=== PATIENT | male | born 1960 | race Two or more races ===

== ENCOUNTER 2016-11-20 12:08 | Emergency (ER) | payer OTHER, MEDICAID ==
[~2016-11-20] VITALS: Ht 149.9 cm; Wt 78.0 kg
[~2016-11-20 12:08] MED LIST: CYA100I IM; FOLI1TAB51 PO; INSLANTI SC; INSLISPI SC; NOR10T PO; PHE100C PO; PHEN50CH4 OR; TAMS0.4C36 PO
[2016-11-20 12:47] LABS: Urine Bilirubin Negative (Negative); Urine Color Yellow (Yellow); Urine Glucose Normal (Normal); Urine Ketone Negative (Negative); Urine Mucus FEW (None Seen); Urine Nitrite Negative (Negative); Urine RBC 31 /hpf (0 - 3); Urine Urobilinogen Normal (Negative); Urine pH 6.5 (5.0-8.0)
[2016-11-20 12:49] LABS: Urine Blood 1+ /uL (Negative)
[2016-11-20 14:54] VITALS: BP 173/79
== END 2016-11-20 16:35 | disposition home or self-care (01) ==
LOC: ER 12:08
DX: Q05.9 Spina bifida, unspecified (principal); G89.29 Other chronic pain; M54.9 Dorsalgia, unspecified; N39.0 Urinary tract infection, site not specified; I12.9 Hypertensive chronic kidney disease with stage 1 through stage 4 chronic kidney disease, or unspecified chronic kidney disease; N18.9 Chronic kidney disease, unspecified; E11.9 Type 2 diabetes mellitus without complications; K21.9 Gastro-esophageal reflux disease without esophagitis; Z87.440 Personal history of urinary (tract) infections; Z90.89 Acquired absence of other organs; Z90.49 Acquired absence of other specified parts of digestive tract; Z87.891 Personal history of nicotine dependence; Z88.1 Allergy status to other antibiotic agents; Z88.6 Allergy status to analgesic agent; Z91.041 Radiographic dye allergy status; Z88.8 Allergy status to other drugs, medicaments and biological substances
CPT/HCPCS: 81001

== ENCOUNTER 2017-05-05 15:56 | Emergency (ER) | payer OTHER, MEDICAID ==
[~2017-05-05] VITALS: Ht 149.9 cm; Wt 75.7 kg
[~2017-05-05 15:56] MED LIST changes: +LISI-646 PO; +PANT1INJ3 PO; -PHEN50CH4 OR; +TETR1CAP PO
[2017-05-05 16:45] LABS: Basophils # (auto) 0 uL; Basophils % (auto) 0.6 % (0.0-2.0); Eosinophils # (auto) 0.1 uL; Eosinophils % (auto) 1.7 % (0.0-7.0); Hematocrit 39.6 % (41.0-53.0); Hemoglobin 13.6 g/dL (13.5-17.5); Lymphocytes # (auto) 0.7 uL; Lymphocytes % (auto) 11.5 % (10.0-50.0); Mean Corpuscular Hemoglobin 30.1 pg (28.0-32.0); Mean Corpuscular Hgb Conc. 34.2 g/dL (32.0-36.0); Mean Corpuscular Volume 87.8 fL (80.0-100.0); Mean Platelet Volume 7.9 fL (6.9-10.8); Monocytes # (auto) 0.6 uL; Monocytes % (auto) 9.4 % (0.0-12.0); Neutrophils % (auto) 76.8 % (37.0-80.0); Platelet Count (auto) 141 10^3/uL (140-450); Red Cell Distribution Width 15.8 % (11.8-14.3); White Blood Cell 6.5 10^3/uL (4.4-10.8)
[2017-05-05 16:58] LABS: Albumin 3.6 g/dL (3.4-5.0); BUN/Creatinine Ratio 21.7; Calcium 8.4 mg/dL (8.5-10.1); Potassium 3.5 mmol/L (3.5-5.1)
[2017-05-05 17:00] LABS: Bilirubin, Total 0.3 mg/dL (0.2-1.0); Total Protein 8.2 g/dL (6.4-8.2)
[2017-05-05] MEDS ORDERED: HYDROmorphone HCL 2 MG/ML VL IV ONE (21:30)
[2017-05-05] MEDS ORDERED: SODIUM CHLORIDE 0.9% 1,000 ML IV ONE (21:30)
[2017-05-05] MEDS ORDERED: ONDANSETRON HCL 4 MG/2 ML VIAL IV ONE (21:30)
[2017-05-05] MEDS ORDERED: diphenhdrAMINE HCL 50 MG/1 ML VL IV ONE (21:30)
[2017-05-05 23:14] LABS: Amylase 126 U/L (25-115)
[2017-05-06 00:21] VITALS: BP 108/60
== END 2017-05-06 01:05 | disposition home or self-care (01) ==
LOC: ER 15:58
DX: R10.11 Right upper quadrant pain (principal); G89.29 Other chronic pain; M54.9 Dorsalgia, unspecified; E11.22 Type 2 diabetes mellitus with diabetic chronic kidney disease; N18.9 Chronic kidney disease, unspecified; K21.9 Gastro-esophageal reflux disease without esophagitis; I12.9 Hypertensive chronic kidney disease with stage 1 through stage 4 chronic kidney disease, or unspecified chronic kidney disease; Z87.440 Personal history of urinary (tract) infections; Z88.8 Allergy status to other drugs, medicaments and biological substances; Z88.6 Allergy status to analgesic agent; Z79.4 Long term (current) use of insulin; Z79.899 Other long term (current) drug therapy; Z90.49 Acquired absence of other specified parts of digestive tract; Z87.891 Personal history of nicotine dependence; Z93.3 Colostomy status
CPT/HCPCS: 36415; 74176; 80053; 82150; 83690; 85025; 93005; 96361; 96374; 96375; 99285; J1170; J1200; J2405

== ENCOUNTER 2017-09-25 13:29 | Inpatient (IN) | payer OTHER, MEDICAID ==
[~2017-09-25] VITALS: Ht 152.4 cm; Wt 78.1 kg
[2017-09-25 15:42] LABS: Basophils # (auto) 0 uL; Basophils % (auto) 0.7 % (0.0-2.0); Eosinophils # (auto) 0.1 uL; Eosinophils % (auto) 2.5 % (0.0-7.0); Hematocrit 39.7 % (41.0-53.0); Hemoglobin 13.6 g/dL (13.5-17.5); Lymphocytes # (auto) 0.7 uL; Lymphocytes % (auto) 13.5 % (10.0-50.0); Mean Corpuscular Hemoglobin 30.6 pg (28.0-32.0); Mean Corpuscular Hgb Conc. 34.2 g/dL (32.0-36.0); Mean Corpuscular Volume 89.5 fL (80.0-100.0); Monocytes # (auto) 0.4 uL; Monocytes % (auto) 7.9 % (0.0-12.0); Neutrophils # (auto) 3.7 uL; Neutrophils % (auto) 75.4 % (37.0-80.0); Platelet Count (auto) 122 10^3/uL (140-450); Red Blood Cells 4.44 10^6/uL (4.5-5.90); Red Cell Distribution Width 15.8 % (11.8-14.3); White Blood Cell 4.9 10^3/uL (4.4-10.8)
[2017-09-25 15:46] LABS: INR 0.97 (0.9-1.15); Partial Thromboplastin Time 26.4 sec (22.64-33.71); Prothrombin Time 10.6 sec (9.37-12.3)
[2017-09-25 15:52] LABS: Alanine Aminotransferase 36 U/L (16-61); Albumin 3.7 g/dL (3.4-5.0); Amylase 137 U/L (25-115); Anion Gap 7 (5-15); Aspartate Aminotransferase 25 U/L (15-37); BUN/Creatinine Ratio 11.9; Blood Urea Nitrogen 17 mg/dL (7-18); Calcium 8.7 mg/dL (8.5-10.1); Carbon Dioxide 23 mmol/L (21-32); Chloride 110 mmol/L (98-107); GFR African American 66 mL/min; GFR Non-African American 54 mL/min; Glucose 251 mg/dL (74-106); Lipase 158 U/L (73-393); Potassium 4.2 mmol/L (3.5-5.1); Sodium 140 mmol/L (136-145)
[2017-09-25 15:57] LABS: Alkaline Phosphatase 68 U/L (45-117); Bilirubin, Total 0.3 mg/dL (0.2-1.0); Lactic Acid w/Reflex 3.7 mmol/L (0.4-2.0); Total Protein 8.2 g/dL (6.4-8.2)
[2017-09-25] MEDS ORDERED: SODIUM CHLORIDE 0.9% 1,000 ML IV ONE ×2 (16:58)
[2017-09-25] MEDS ORDERED: PIPERACILLIN-TAZOB 3.375GM 50 ML IV ONE (17:00)
[2017-09-25] MEDS ORDERED: VANCOMYCIN 1GM/250ML 250 ML IV ONE (17:00)
[2017-09-25] MEDS ORDERED: DEXTROSE (50%) 50ML SYRG IV PRN (18:15)
[2017-09-25] MEDS ORDERED: VANCOMYCIN PER PHARMACY 0 MG IV SCH (18:30)
[2017-09-25] MEDS ORDERED: traMADol HCL 50 MG TAB PO PRN (18:45)
[2017-09-25] MEDS ORDERED: DOCUSATE SOD 100 MG CAP PO PRN (18:45)
[2017-09-25] MEDS ORDERED: TEMAZEPAM 15 MG CAP PO PRN (18:45)
[2017-09-25] MEDS ORDERED: MULTIPLE VITAMIN TAB PO ONE (19:00)
[2017-09-25] MEDS ORDERED: LISINOPRIL 20 MG TAB PO ONE (19:00)
[2017-09-25] MEDS ORDERED: ZINC SULFATE 220 MG CAP PO ONE (19:00)
[2017-09-25 19:04] LABS: Urine Bacteria MANY /hpf (None Seen); Urine Blood TRACE /uL (Negative); Urine WBC 30 /hpf (0 - 3)
[2017-09-25 20:00] VITALS: BP 160/87
[2017-09-25] MEDS ORDERED: diphenhdrAMINE HCL 50 MG/1 ML VL ONE (20:37)
[2017-09-25] MEDS ORDERED: diphenhdrAMINE HCL 50 MG/1 ML VL IV ONE (20:45)
[2017-09-25 21:52] VITALS: BP 150/92
[2017-09-25] MEDS: INSULIN LANTUS (GLARGINE) 1 /0.01ml (100units/ml) SC SCH (22:15)
[2017-09-25] MEDS: ACCU-CHEK COMFORT CURVE STRIP VI SCH (22:15)
[2017-09-25] MEDS: InsuLIN REG 1unit/0.01ml Soln (100units/ml) SC SCH (22:16)
[2017-09-25] MEDS: SODIUM CHLOR 0.9% PF (SALINE LOCK) 10ML VIAL IV SCH (22:26)
[2017-09-25] MEDS: ASCORBIC ACID 500 MG TAB PO SCH (22:26)
[2017-09-25] MEDS: FAMOTIDINE 20 MG TAB PO SCH (22:26)
[2017-09-25] MEDS: carBAMazepine 200 MG TAB PO SCH (22:26)
[2017-09-26] MEDS: NALBUPHINE HCL 10 MG/1ml INJECTION IV PRN ×5 (00:34→22:34)
[2017-09-26] MEDS: diphenhdrAMINE HCL 50 MG/1 ML VL IV PRN ×3 (00:34→22:34)
[2017-09-26] MEDS: PIPERACILLIN-TAZOB 3.375GM 50 ML IV SCH ×4 (00:35→16:47)
[2017-09-26 05:14] VITALS: BP 134/71
[2017-09-26] MEDS: SODIUM CHLOR 0.9% PF (SALINE LOCK) 10ML VIAL IV SCH ×2 (06:01→12:23)
[2017-09-26 06:50] VITALS: BP 143/76
[2017-09-26] MEDS: InsuLIN REG 1unit/0.01ml Soln (100units/ml) SC SCH ×4 (07:03→22:00)
[2017-09-26] MEDS: INSULIN LANTUS (GLARGINE) 1 /0.01ml (100units/ml) SC SCH ×2 (07:04→22:00)
[2017-09-26] MEDS: ACCU-CHEK COMFORT CURVE STRIP VI SCH ×4 (07:04→22:00)
[2017-09-26 07:12] LABS: Albumin 2.8 g/dL (3.4-5.0); Calcium 7.6 mg/dL (8.5-10.1)
[2017-09-26 07:14] LABS: BUN/Creatinine Ratio 9.1
[2017-09-26 07:16] LABS: Bilirubin, Total 0.3 mg/dL (0.2-1.0); Total Protein 6.6 g/dL (6.4-8.2)
[2017-09-26 08:12] LABS: Basophils # (auto) 0 uL; Basophils % (auto) 0.9 % (0.0-2.0); Eosinophils # (auto) 0.2 uL; Eosinophils % (auto) 4.3 % (0.0-7.0); Hematocrit 39.3 % (41.0-53.0); Hemoglobin 13.4 g/dL (13.5-17.5); Lymphocytes # (auto) 0.7 uL; Lymphocytes % (auto) 14.2 % (10.0-50.0); Mean Corpuscular Hemoglobin 30.4 pg (28.0-32.0); Mean Corpuscular Volume 89.6 fL (80.0-100.0); Monocytes # (auto) 0.6 uL; Monocytes % (auto) 11.8 % (0.0-12.0); Neutrophils # (auto) 3.2 uL; Neutrophils % (auto) 68.8 % (37.0-80.0); Nucleated Red Blood Cells % 0.1 %; Platelet Count (auto) 115 10^3/uL (140-450); Red Blood Cells 4.39 10^6/uL (4.5-5.90); Red Cell Distribution Width 15.4 % (11.8-14.3); White Blood Cell 4.7 10^3/uL (4.4-10.8)
[2017-09-26] MEDS: ASCORBIC ACID 500 MG TAB PO SCH ×2 (09:53→22:35)
[2017-09-26] MEDS: ZINC SULFATE 220 MG CAP PO SCH (09:53)
[2017-09-26] MEDS: FAMOTIDINE 20 MG TAB PO SCH ×2 (09:53→22:34)
[2017-09-26] MEDS: MULTIPLE VITAMIN TAB PO SCH (09:53)
[2017-09-26] MEDS: carBAMazepine 200 MG TAB PO SCH ×2 (09:54→22:35)
[2017-09-26] MEDS: LISINOPRIL 20 MG TAB PO SCH (09:54)
[2017-09-26 11:51] VITALS: BP 166/51
[2017-09-26] MEDS: ONDANSETRON HCL 4 MG/2 ML VIAL IV PRN ×2 (12:39→16:46)
[2017-09-26 16:25] VITALS: BP 147/76
[2017-09-26] MEDS ORDERED: VANCOMYCIN 1GM/250ML 250 ML IV SCH (18:00)
[2017-09-26 21:48] VITALS: BP 124/70
[2017-09-27] MEDS: PIPERACILLIN-TAZOB 3.375GM 50 ML IV SCH ×3 (00:15→12:03)
[2017-09-27] MEDS: SODIUM CHLOR 0.9% PF (SALINE LOCK) 10ML VIAL IV SCH ×3 (00:16→13:02)
[2017-09-27] MEDS: diphenhdrAMINE HCL 50 MG/1 ML VL IV PRN (03:35)
[2017-09-27] MEDS: NALBUPHINE HCL 10 MG/1ml INJECTION IV PRN ×2 (03:35→10:22)
[2017-09-27 05:00] VITALS: BP 149/79
[2017-09-27] MEDS: ACCU-CHEK COMFORT CURVE STRIP VI SCH ×2 (06:28→11:30)
[2017-09-27] MEDS: InsuLIN REG 1unit/0.01ml Soln (100units/ml) SC SCH ×2 (06:33→11:30)
[2017-09-27] MEDS: INSULIN LANTUS (GLARGINE) 1 /0.01ml (100units/ml) SC SCH (06:33)
[2017-09-27 07:03] LABS: Basophils # (auto) 0 uL; Basophils % (auto) 0.5 % (0.0-2.0); Eosinophils # (auto) 0.3 uL; Eosinophils % (auto) 3.8 % (0.0-7.0); Hematocrit 36.2 % (41.0-53.0); Hemoglobin 12.4 g/dL (13.5-17.5); Lymphocytes # (auto) 0.7 uL; Lymphocytes % (auto) 10.5 % (10.0-50.0); Mean Corpuscular Hemoglobin 30.8 pg (28.0-32.0); Mean Corpuscular Hgb Conc. 34.4 g/dL (32.0-36.0); Mean Corpuscular Volume 89.7 fL (80.0-100.0); Monocytes # (auto) 0.7 uL; Monocytes % (auto) 9.6 % (0.0-12.0); Neutrophils # (auto) 5.2 uL; Neutrophils % (auto) 75.6 % (37.0-80.0); Nucleated Red Blood Cells % 0.1 %; Platelet Count (auto) 109 10^3/uL (140-450); Red Blood Cells 4.03 10^6/uL (4.5-5.90); Red Cell Distribution Width 15.8 % (11.8-14.3); White Blood Cell 6.9 10^3/uL (4.4-10.8)
[2017-09-27 07:11] LABS: Calcium 8.1 mg/dL (8.5-10.1); Magnesium 2.1 mg/dL (1.6-2.6); Potassium 4.3 mmol/L (3.5-5.1)
[2017-09-27 07:18] LABS: BUN/Creatinine Ratio 10.8
[2017-09-27] MEDS ORDERED: FUROSEMIDE 40 MG/4 ML VIAL ONE (09:26)
[2017-09-27] MEDS ORDERED: AMPI500C8 PO (09:51)
[2017-09-27] MEDS ORDERED: SACC250C PO (09:51)
[2017-09-27] MEDS: MULTIPLE VITAMIN TAB PO SCH (10:21)
[2017-09-27] MEDS: FAMOTIDINE 20 MG TAB PO SCH (10:21)
[2017-09-27] MEDS: ZINC SULFATE 220 MG CAP PO SCH (10:21)
[2017-09-27] MEDS: carBAMazepine 200 MG TAB PO SCH (10:22)
[2017-09-27] MEDS: ASCORBIC ACID 500 MG TAB PO SCH (10:22)
[2017-09-27] MEDS: ONDANSETRON HCL 4 MG/2 ML VIAL IV PRN (10:22)
[2017-09-27] MEDS: LISINOPRIL 20 MG TAB PO SCH (12:03)
== END 2017-09-27 13:19 | disposition home or self-care (01) | DRG 872 ==
LOC: ER 13:29 → OVERFLOW 13:30 → CENTRAL 21:52
PROVIDERS: ADMIT Internal Medicine; ATTEND Internal Medicine
DX: A41.9 Sepsis, unspecified organism (principal); D69.6 Thrombocytopenia, unspecified; E11.21 Type 2 diabetes mellitus with diabetic nephropathy; E44.1 Mild protein-calorie malnutrition; E11.22 Type 2 diabetes mellitus with diabetic chronic kidney disease; N13.30 Unspecified hydronephrosis; N18.3 Chronic kidney disease, stage 3 (moderate); B96.20 Unspecified Escherichia coli [E. coli] as the cause of diseases classified elsewhere; D64.9 Anemia, unspecified; G40.909 Epilepsy, unspecified, not intractable, without status epilepticus; F41.9 Anxiety disorder, unspecified; I12.9 Hypertensive chronic kidney disease with stage 1 through stage 4 chronic kidney disease, or unspecified chronic kidney disease; R29.6 Repeated falls; K21.9 Gastro-esophageal reflux disease without esophagitis; G47.00 Insomnia, unspecified; K59.00 Constipation, unspecified; F32.9 Major depressive disorder, single episode, unspecified; K57.30 Diverticulosis of large intestine without perforation or abscess without bleeding; Z68.33 Body mass index [BMI] 33.0-33.9, adult; Q05.9 Spina bifida, unspecified; Z79.4 Long term (current) use of insulin; Z82.49 Family history of ischemic heart disease and other diseases of the circulatory system; Z83.3 Family history of diabetes mellitus; Z87.442 Personal history of urinary calculi; Z93.3 Colostomy status; Z88.6 Allergy status to analgesic agent; Z88.5 Allergy status to narcotic agent; Z88.8 Allergy status to other drugs, medicaments and biological substances; Z79.899 Other long term (current) drug therapy; Z90.49 Acquired absence of other specified parts of digestive tract; Z87.891 Personal history of nicotine dependence; Z71.89 Other specified counseling
CPT/HCPCS: 36415; 71045; 74176; 78707; 80048; 80053; 81001; 82150; 82962; 83036; 83605; 83690; 83735; 84484; 85025; 85610; 85730; 87040; 87086; 87088; 87186; 93005; 96361; 96365; 96367; 96375; 97163; J1815; J2405; J2543

== ENCOUNTER 2017-11-04 18:55 | Emergency (ER) | payer OTHER, MEDICAID ==
[~2017-11-04] VITALS: Ht 152.4 cm; Wt 76.2 kg
[~2017-11-04 18:55] MED LIST changes: +AMPI500C8 PO; +SACC250C PO
[2017-11-04] MEDS ORDERED: ONDANSETRON HCL 4 MG/2 ML VIAL IV ONE (20:45)
[2017-11-04] MEDS ORDERED: diphenhdrAMINE HCL 50 MG/1 ML VL IV ONE (20:45)
[2017-11-04] MEDS ORDERED: NALBUPHINE HCL 10 MG/1ml INJECTION IV ONE (20:45)
[2017-11-04 21:04] LABS: Albumin 3.6 g/dL (3.4-5.0); BUN/Creatinine Ratio 22.7; Calcium 8.4 mg/dL (8.5-10.1); Potassium 4.6 mmol/L (3.5-5.1)
[2017-11-04 21:07] LABS: Bilirubin, Total 0.7 mg/dL (0.2-1.0); Total Protein 8.3 g/dL (6.4-8.2)
[2017-11-04 21:25] LABS: Urine Bacteria FEW /hpf (None Seen); Urine Blood 1+ /uL (Negative); Urine Specific Gravity 1.012 (1.001-1.035); Urine WBC 508 /hpf (0 - 3); Urine WBC Clumps PRESENT /hpf (None Seen)
[2017-11-04] MEDS ORDERED: NALBUPHINE HCL 10 MG/1ml INJECTION IM ONE (21:45)
[2017-11-04 23:07] VITALS: BP 110/63
[2017-11-04 23:13] LABS: Basophils # (auto) 0 uL; Basophils % (auto) 0.4 % (0.0-2.0); Eosinophils # (auto) 0.1 uL; Hematocrit 40.4 % (41.0-53.0); Hemoglobin 13.7 g/dL (13.5-17.5); Lymphocytes # (auto) 0.5 uL; Lymphocytes % (auto) 6.7 % (10.0-50.0); Mean Corpuscular Hemoglobin 30.2 pg (28.0-32.0); Mean Corpuscular Hgb Conc. 33.9 g/dL (32.0-36.0); Mean Corpuscular Volume 89.1 fL (80.0-100.0); Monocytes # (auto) 0.8 uL; Monocytes % (auto) 10.3 % (0.0-12.0); Neutrophils # (auto) 6.3 uL; Neutrophils % (auto) 81.6 % (37.0-80.0); Nucleated Red Blood Cells % 0.1 %; Red Blood Cells 4.53 10^6/uL (4.5-5.90); Red Cell Distribution Width 14.7 % (11.8-14.3); White Blood Cell 7.7 10^3/uL (4.4-10.8)
[2017-11-04 23:25] LABS: Platelet Count (auto) 124 10^3/uL (140-450)
== END 2017-11-04 23:49 | disposition home or self-care (01) ==
LOC: ER 19:01
DX: K85.90 Acute pancreatitis without necrosis or infection, unspecified (principal); N39.0 Urinary tract infection, site not specified; N17.9 Acute kidney failure, unspecified; I12.9 Hypertensive chronic kidney disease with stage 1 through stage 4 chronic kidney disease, or unspecified chronic kidney disease; Q05.9 Spina bifida, unspecified; N18.2 Chronic kidney disease, stage 2 (mild); E11.22 Type 2 diabetes mellitus with diabetic chronic kidney disease; K21.9 Gastro-esophageal reflux disease without esophagitis; Z79.4 Long term (current) use of insulin; Z87.442 Personal history of urinary calculi; Z90.49 Acquired absence of other specified parts of digestive tract; Z93.3 Colostomy status; Z76.5 Malingerer [conscious simulation]; Z87.891 Personal history of nicotine dependence; Z88.6 Allergy status to analgesic agent; Z88.8 Allergy status to other drugs, medicaments and biological substances
CPT/HCPCS: 36415; 74176; 80053; 81001; 83690; 85025; 96372; 96374; 96375; 99285; J1200; J2300; J2405

== ENCOUNTER 2018-05-02 18:33 | Inpatient (IN) | payer OTHER, MEDICAID ==
[~2018-05-02] VITALS: Ht 144.8 cm; Wt 78.0 kg
[~2018-05-02 18:33] MED LIST changes: -SACC250C PO; -TETR1CAP PO
[2018-05-02 22:02] LABS: Basophils # (auto) 0 uL; Basophils % (auto) 0.4 % (0.0-2.0); Eosinophils # (auto) 0.1 uL; Eosinophils % (auto) 2.2 % (0.0-7.0); Hematocrit 39.9 % (41.0-53.0); Hemoglobin 13.6 g/dL (13.5-17.5); Lymphocytes # (auto) 0.8 uL; Mean Corpuscular Hemoglobin 31.5 pg (28.0-32.0); Mean Corpuscular Hgb Conc. 34.2 g/dL (32.0-36.0); Mean Corpuscular Volume 92.1 fL (80.0-100.0); Monocytes # (auto) 0.6 uL; Monocytes % (auto) 10.5 % (0.0-12.0); Neutrophils # (auto) 4.4 uL; Neutrophils % (auto) 73.9 % (37.0-80.0); Nucleated Red Blood Cells % 0.1 %; Platelet Count (auto) 127 10^3/uL (140-450); Red Blood Cells 4.33 10^6/uL (4.5-5.90); Red Cell Distribution Width 15.6 % (11.8-14.3); White Blood Cell 5.9 10^3/uL (4.4-10.8)
[2018-05-02 22:08] LABS: Urine Bacteria NONE SEEN /hpf (None Seen); Urine Blood 3+ /uL (Negative); Urine Mucus FEW (None Seen); Urine Specific Gravity 1.011 (1.001-1.035); Urine WBC 173 /hpf (0 - 3)
[2018-05-02 22:21] LABS: Alanine Aminotransferase 27 U/L (16-61); Albumin 3.6 g/dL (3.4-5.0); Alkaline Phosphatase 67 U/L (45-117); Anion Gap 10 (5-15); Aspartate Aminotransferase 13 U/L (15-37); BUN/Creatinine Ratio 14.6; Bilirubin, Total 0.5 mg/dL (0.2-1.0); Blood Urea Nitrogen 24 mg/dL (7-18); Calcium 8.1 mg/dL (8.5-10.1); Carbon Dioxide 14 mmol/L (21-32); Chloride 114 mmol/L (98-107); GFR African American 56 mL/min; GFR Non-African American 46 mL/min; Glucose 295 mg/dL (74-106); Magnesium 2.4 mg/dL (1.6-2.6); Potassium 3.9 mmol/L (3.5-5.1); Sodium 138 mmol/L (136-145); Total Protein 7.7 g/dL (6.4-8.2)
[2018-05-03] MEDS ORDERED: diphenhdrAMINE HCL 50 MG/1 ML VL IV ONE (03:30)
[2018-05-03] MEDS ORDERED: cefTRIAXone 1GM/10ml IVPUSH 10 ML IV ONE (03:30)
[2018-05-03] MEDS ORDERED: SODIUM CHLORIDE 0.9% 1,000 ML IV ONE (03:30)
[2018-05-03] MEDS ORDERED: HYDROmorphone HCL 2 MG/ML VL IV ONE (03:30)
[2018-05-03] MEDS ORDERED: ONDANSETRON HCL 4 MG/2 ML VIAL ONE (05:12)
[2018-05-03] MEDS ORDERED: ONDANSETRON HCL 4 MG/2 ML VIAL IV ONE (05:30)
[2018-05-03] MEDS ORDERED: DEXTROSE (50%) 50ML SYRG IV PRN (06:15)
[2018-05-03] MEDS: SODIUM CHLORIDE 0.9% 1,000 ML IV SCH (06:15)
[2018-05-03] MEDS ORDERED: IBUPROFEN 600 MG TAB PO PRN (06:15)
[2018-05-03] MEDS ORDERED: VANCOMYCIN PER PHARMACY 0 MG IV SCH (06:30)
[2018-05-03] MEDS: ACCU-CHEK COMFORT CURVE STRIP VI SCH ×3 (07:12→16:57)
[2018-05-03 07:16] LABS: Basophils # (auto) 0 uL; Basophils % (auto) 0.4 % (0.0-2.0); Eosinophils # (auto) 0.1 uL; Eosinophils % (auto) 2.3 % (0.0-7.0); Hematocrit 35.9 % (41.0-53.0); Hemoglobin 12.8 g/dL (13.5-17.5); Lymphocytes # (auto) 0.7 uL; Mean Corpuscular Hemoglobin 32.6 pg (28.0-32.0); Mean Corpuscular Hgb Conc. 35.5 g/dL (32.0-36.0); Mean Corpuscular Volume 91.7 fL (80.0-100.0); Monocytes # (auto) 0.5 uL; Neutrophils # (auto) 4.4 uL; Neutrophils % (auto) 76.3 % (37.0-80.0); Platelet Count (auto) 96 10^3/uL (140-450); Red Blood Cells 3.92 10^6/uL (4.5-5.90); Red Cell Distribution Width 15.7 % (11.8-14.3); White Blood Cell 5.8 10^3/uL (4.4-10.8)
[2018-05-03 07:34] LABS: Albumin 3.1 g/dL (3.4-5.0); BUN/Creatinine Ratio 14.7; Calcium 7.1 mg/dL (8.5-10.1); Potassium 3.6 mmol/L (3.5-5.1)
[2018-05-03 07:37] LABS: Bilirubin, Total 0.4 mg/dL (0.2-1.0)
[2018-05-03] MEDS: InsuLIN REG 1unit/0.01ml Soln (100units/ml) SC SCH ×4 (07:52→22:00)
[2018-05-03] MEDS: INSULIN LANTUS (GLARGINE) 1 /0.01ml (100units/ml) SC SCH (07:53)
[2018-05-03] MEDS ORDERED: LIDOCAINE 1% HCL (LOCAL ANESTH.) INJ 20ML MDV ONE (07:58)
[2018-05-03] MEDS ORDERED: VANCOMYCIN 1GM/250ML 250 ML IV ONE (09:00)
[2018-05-03] MEDS: LISINOPRIL 20 MG TAB PO SCH (09:14)
[2018-05-03] MEDS ORDERED: HYDROmorphone HCL 2 MG/ML VL IV PRN (10:30)
[2018-05-03] MEDS: ONDANSETRON HCL 4 MG/2 ML VIAL IV PRN ×2 (10:43→16:32)
[2018-05-03] MEDS: diphenhdrAMINE HCL 25 MG CAP PO PRN ×2 (10:43→21:00)
[2018-05-03] MEDS: fentaNYL CITRATE 100 MCG/2 ML VL IV PRN ×2 (12:16→16:32)
[2018-05-03] MEDS: PIPERACILLIN-TAZOB 3.375GM 100 ML IV SCH ×2 (12:17→17:51)
[2018-05-03 18:56] VITALS: BP 122/68
[2018-05-03 20:00] VITALS: BP 115/60
[2018-05-03 22:00] VITALS: BP 112/67
[2018-05-03] MEDS ORDERED: INSULIN LANTUS (GLARGINE) 1 /0.01ml (100units/ml) SC SCH (22:00)
[2018-05-04] VITALS (7 sets, daily range): BP systolic 102–139; BP diastolic 44–70
[2018-05-04] MEDS: ACCU-CHEK COMFORT CURVE STRIP VI SCH ×5 (00:02→21:22)
[2018-05-04] MEDS: SODIUM CHLORIDE 0.9% 1,000 ML IV SCH ×2 (00:13→15:35)
[2018-05-04] MEDS: PIPERACILLIN-TAZOB 3.375GM 100 ML IV SCH ×4 (00:13→17:34)
[2018-05-04] MEDS ORDERED: MEPERIDINE HCL (25 MG/ML) 1ML VIAL IV ONE (02:30)
[2018-05-04] MEDS: diphenhdrAMINE HCL 25 MG CAP PO PRN (02:57)
[2018-05-04] MEDS ORDERED: INSLANTI SC (06:04)
[2018-05-04 06:49] LABS: BUN/Creatinine Ratio 14.6; Calcium 7.5 mg/dL (8.5-10.1); Potassium 4.1 mmol/L (3.5-5.1)
[2018-05-04] MEDS ORDERED: KETOROLAC TROMETH 30 MG/ML 1ML VIAL IV ONE (08:00)
[2018-05-04] MEDS: HYDROmorphone HCL 2 MG/ML VL IV PRN ×5 (08:35→21:14)
[2018-05-04] MEDS: ONDANSETRON HCL 4 MG/2 ML VIAL IV PRN ×2 (08:44→21:14)
[2018-05-04] MEDS: InsuLIN REG 1unit/0.01ml Soln (100units/ml) SC SCH ×4 (09:10→21:15)
[2018-05-04] MEDS: INSULIN LANTUS (GLARGINE) 1 /0.01ml (100units/ml) SC SCH (09:10)
[2018-05-04] MEDS: LISINOPRIL 20 MG TAB PO SCH (10:05)
[2018-05-04] MEDS: VANCOMYCIN 750 MG in D5W 5% 250 ML IV SCH (10:06)
[2018-05-04 10:27] LABS: Basophils # (auto) 0 uL; Basophils % (auto) 0.6 % (0.0-2.0); Eosinophils # (auto) 0.1 uL; Eosinophils % (auto) 2.8 % (0.0-7.0); Hematocrit 39.7 % (41.0-53.0); Hemoglobin 13.8 g/dL (13.5-17.5); Lymphocytes # (auto) 0.4 uL; Lymphocytes % (auto) 9.6 % (10.0-50.0); Mean Corpuscular Hemoglobin 32.2 pg (28.0-32.0); Mean Corpuscular Hgb Conc. 34.8 g/dL (32.0-36.0); Mean Corpuscular Volume 92.4 fL (80.0-100.0); Monocytes # (auto) 0.3 uL; Monocytes % (auto) 9.1 % (0.0-12.0); Neutrophils % (auto) 77.9 % (37.0-80.0); Nucleated Red Blood Cells % 0.1 %; Platelet Count (auto) 96 10^3/uL (140-450); Red Cell Distribution Width 15.4 % (11.8-14.3); White Blood Cell 3.8 10^3/uL (4.4-10.8)
[2018-05-05] VITALS (7 sets, daily range): BP systolic 108–132; BP diastolic 50–65
[2018-05-05] MEDS: PIPERACILLIN-TAZOB 3.375GM 100 ML IV SCH ×3 (00:16→13:32)
[2018-05-05] MEDS: HYDROmorphone HCL 2 MG/ML VL IV PRN ×8 (00:16→23:08)
[2018-05-05] MEDS: ONDANSETRON HCL 4 MG/2 ML VIAL IV PRN ×4 (03:17→23:09)
[2018-05-05] MEDS: ACCU-CHEK COMFORT CURVE STRIP VI SCH ×4 (06:04→21:37)
[2018-05-05] MEDS: InsuLIN REG 1unit/0.01ml Soln (100units/ml) SC SCH ×4 (06:39→21:38)
[2018-05-05] MEDS: INSULIN LANTUS (GLARGINE) 1 /0.01ml (100units/ml) SC SCH (06:40)
[2018-05-05] MEDS: SODIUM CHLORIDE 0.9% 1,000 ML IV SCH ×2 (06:40→16:35)
[2018-05-05] MEDS: LISINOPRIL 20 MG TAB PO SCH (09:49)
[2018-05-05] MEDS: VANCOMYCIN 750 MG in D5W 5% 250 ML IV SCH (09:52)
[2018-05-05] MEDS: diphenhdrAMINE HCL 25 MG CAP PO PRN (10:30)
[2018-05-05 13:38] LABS: Basophils # (auto) 0 uL; Basophils % (auto) 0.8 % (0.0-2.0); Eosinophils # (auto) 0.2 uL; Eosinophils % (auto) 4.1 % (0.0-7.0); Hematocrit 39.8 % (41.0-53.0); Hemoglobin 13.5 g/dL (13.5-17.5); Lymphocytes # (auto) 1.1 uL; Lymphocytes % (auto) 18.5 % (10.0-50.0); Mean Corpuscular Hemoglobin 31.1 pg (28.0-32.0); Mean Corpuscular Volume 91.4 fL (80.0-100.0); Monocytes # (auto) 0.6 uL; Neutrophils # (auto) 3.9 uL; Neutrophils % (auto) 66.6 % (37.0-80.0); Platelet Count (auto) 108 10^3/uL (140-450); Red Blood Cells 4.35 10^6/uL (4.5-5.90); Red Cell Distribution Width 15.4 % (11.8-14.3); White Blood Cell 5.9 10^3/uL (4.4-10.8)
[2018-05-05 13:52] LABS: BUN/Creatinine Ratio 13.6; Calcium 8.3 mg/dL (8.5-10.1); Potassium 3.8 mmol/L (3.5-5.1)
[2018-05-05] MEDS: AMOXICILLIN TRIHYDRATE 250 MG CAP PO SCH ×2 (15:04→21:34)
[2018-05-06] VITALS (8 sets, daily range): BP systolic 108–160; BP diastolic 53–71
[2018-05-06] MEDS: diphenhdrAMINE HCL 25 MG CAP PO PRN ×2 (01:17→21:33)
[2018-05-06] MEDS: SODIUM CHLORIDE 0.9% 1,000 ML IV SCH ×3 (01:22→21:45)
[2018-05-06] MEDS: HYDROmorphone HCL 2 MG/ML VL IV PRN ×6 (02:10→21:32)
[2018-05-06] MEDS: ONDANSETRON HCL 4 MG/2 ML VIAL IV PRN ×4 (05:08→21:32)
[2018-05-06 06:20] LABS: Basophils # (auto) 0 uL; Basophils % (auto) 0.7 % (0.0-2.0); Eosinophils # (auto) 0.2 uL; Eosinophils % (auto) 4.4 % (0.0-7.0); Hematocrit 32.9 % (41.0-53.0); Hemoglobin 11.1 g/dL (13.5-17.5); Lymphocytes # (auto) 0.6 uL; Lymphocytes % (auto) 17.8 % (10.0-50.0); Mean Corpuscular Hgb Conc. 33.6 g/dL (32.0-36.0); Mean Corpuscular Volume 95.1 fL (80.0-100.0); Monocytes # (auto) 0.4 uL; Monocytes % (auto) 11.8 % (0.0-12.0); Neutrophils # (auto) 2.3 uL; Neutrophils % (auto) 65.3 % (37.0-80.0); Nucleated Red Blood Cells % 0.2 %; Platelet Count (auto) 79 10^3/uL (140-450); Red Blood Cells 3.46 10^6/uL (4.5-5.90); White Blood Cell 3.5 10^3/uL (4.4-10.8)
[2018-05-06 06:31] LABS: BUN/Creatinine Ratio 13.4; Calcium 7.5 mg/dL (8.5-10.1); Potassium 4.3 mmol/L (3.5-5.1)
[2018-05-06] MEDS: INSULIN LANTUS (GLARGINE) 1 /0.01ml (100units/ml) SC SCH (06:47)
[2018-05-06] MEDS: ACCU-CHEK COMFORT CURVE STRIP VI SCH ×4 (06:47→21:33)
[2018-05-06] MEDS: AMOXICILLIN TRIHYDRATE 250 MG CAP PO SCH ×3 (06:47→21:32)
[2018-05-06] MEDS: InsuLIN REG 1unit/0.01ml Soln (100units/ml) SC SCH ×4 (06:48→21:33)
[2018-05-06] MEDS ORDERED: PANTOPRAZOLE 40 MG/10 ML VIAL IV ONE (14:00)
[2018-05-06 18:00] LABS: Hematocrit 35.9 % (41.0-53.0); Hemoglobin 12.4 g/dL (13.5-17.5)
[2018-05-06 18:11] LABS: INR 0.98 (0.9-1.15); Prothrombin Time 10.5 sec (9.27-12.13)
[2018-05-06] MEDS: PANTOPRAZOLE 40 MG TAB PO SCH (21:33)
[2018-05-06 23:55] LABS: Hematocrit 33.6 % (41.0-53.0)
[2018-05-07] MEDS: HYDROmorphone HCL 2 MG/ML VL IV PRN ×4 (00:27→13:11)
[2018-05-07] MEDS: ONDANSETRON HCL 4 MG/2 ML VIAL IV PRN ×3 (03:39→15:12)
[2018-05-07] MEDS: SODIUM CHLORIDE 0.9% 1,000 ML IV SCH (03:39)
[2018-05-07 04:42] VITALS: BP 140/68
[2018-05-07] MEDS: AMOXICILLIN TRIHYDRATE 250 MG CAP PO SCH ×2 (06:49→13:35)
[2018-05-07] MEDS: ACCU-CHEK COMFORT CURVE STRIP VI SCH ×2 (06:50→11:17)
[2018-05-07] MEDS: INSULIN LANTUS (GLARGINE) 1 /0.01ml (100units/ml) SC SCH (06:50)
[2018-05-07] MEDS: InsuLIN REG 1unit/0.01ml Soln (100units/ml) SC SCH ×2 (06:50→11:17)
[2018-05-07 08:00] VITALS: BP 146/71
[2018-05-07] MEDS: PANTOPRAZOLE 40 MG TAB PO SCH (08:54)
[2018-05-07 08:59] VITALS: BP 146/71
[2018-05-07 10:29] LABS: Basophils # (auto) 0 uL; Basophils % (auto) 0.7 % (0.0-2.0); Eosinophils # (auto) 0.2 uL; Eosinophils % (auto) 4.1 % (0.0-7.0); Hematocrit 32.2 % (41.0-53.0); Lymphocytes # (auto) 0.6 uL; Lymphocytes % (auto) 14.8 % (10.0-50.0); Mean Corpuscular Hemoglobin 31.5 pg (28.0-32.0); Mean Corpuscular Hgb Conc. 34.1 g/dL (32.0-36.0); Mean Corpuscular Volume 92.4 fL (80.0-100.0); Monocytes # (auto) 0.4 uL; Monocytes % (auto) 9.6 % (0.0-12.0); Neutrophils # (auto) 2.8 uL; Neutrophils % (auto) 70.8 % (37.0-80.0); Platelet Count (auto) 76 10^3/uL (140-450); Red Blood Cells 3.49 10^6/uL (4.5-5.90); Red Cell Distribution Width 15.2 % (11.8-14.3); White Blood Cell 3.9 10^3/uL (4.4-10.8)
[2018-05-07 10:50] LABS: BUN/Creatinine Ratio 14.9; Calcium 8.2 mg/dL (8.5-10.1); Potassium 4.3 mmol/L (3.5-5.1)
[2018-05-07 13:00] VITALS: BP 152/68
[2018-05-07] MEDS ORDERED: SACC250C PO (13:35)
[2018-05-07] MEDS ORDERED: AMOX500C2 PO (13:35)
[2018-05-07] MEDS ORDERED: HYDROmorphone HCL 2 MG/ML VL IV PRN (13:45)
[2018-05-07 13:50] VITALS: BP 152/68
== END 2018-05-07 16:00 | disposition home or self-care (01) | DRG 683 ==
LOC: ER 18:33 → OVERFLOW 18:34 → WEST WING 05-03 18:23
PROVIDERS: ADMIT Nurse Practitioner Family; ATTEND Internal Medicine
DX: N17.0 Acute kidney failure with tubular necrosis (principal); E87.1 Hypo-osmolality and hyponatremia; E44.1 Mild protein-calorie malnutrition; F11.20 Opioid dependence, uncomplicated; N13.6 Pyonephrosis; D69.6 Thrombocytopenia, unspecified; N18.3 Chronic kidney disease, stage 3 (moderate); E11.22 Type 2 diabetes mellitus with diabetic chronic kidney disease; I12.9 Hypertensive chronic kidney disease with stage 1 through stage 4 chronic kidney disease, or unspecified chronic kidney disease; E11.21 Type 2 diabetes mellitus with diabetic nephropathy; B95.2 Enterococcus as the cause of diseases classified elsewhere; G89.29 Other chronic pain; G93.89 Other specified disorders of brain; K21.9 Gastro-esophageal reflux disease without esophagitis; K57.90 Diverticulosis of intestine, part unspecified, without perforation or abscess without bleeding; K74.60 Unspecified cirrhosis of liver; Z79.4 Long term (current) use of insulin; Z82.49 Family history of ischemic heart disease and other diseases of the circulatory system; Z83.3 Family history of diabetes mellitus; Z86.73 Personal history of transient ischemic attack (TIA), and cerebral infarction without residual deficits; Z87.440 Personal history of urinary (tract) infections; Z87.442 Personal history of urinary calculi; Z68.37 Body mass index [BMI] 37.0-37.9, adult; Z90.6 Acquired absence of other parts of urinary tract; Z93.3 Colostomy status; Z98.2 Presence of cerebrospinal fluid drainage device; Z88.5 Allergy status to narcotic agent; Z88.6 Allergy status to analgesic agent; Z91.041 Radiographic dye allergy status; Z90.49 Acquired absence of other specified parts of digestive tract; Q05.9 Spina bifida, unspecified; Z82.61 Family history of arthritis; Z80.9 Family history of malignant neoplasm, unspecified
CPT/HCPCS: 36415; 70450; 74176; 80048; 80053; 80202; 81001; 82270; 82962; 83735; 84484; 85014; 85018; 85025; 85045; 85610; 86850; 86900; 86901; 87081; 87086; 87088; 87186; 93005; 94761; 96361; 96365; 96375; A6257; C9113; J0696; J1815; J2001; J2405; J2543; J7060

== ENCOUNTER 2018-06-04 09:57 | Emergency (ER) | payer OTHER, MEDICAID ==
[~2018-06-04] VITALS: Ht 149.9 cm; Wt 68.9 kg
[~2018-06-04 09:57] MED LIST changes: +AMOX500C2 PO; -AMPI500C8 PO; -CYA100I IM; -NOR10T PO; +SACC250C PO; -TAMS0.4C36 PO
[2018-06-04 11:03] LABS: Basophils # (auto) 0 uL; Basophils % (auto) 0.6 % (0.0-2.0); Eosinophils # (auto) 0.1 uL; Eosinophils % (auto) 1.9 % (0.0-7.0); Hematocrit 38.7 % (41.0-53.0); Hemoglobin 12.4 g/dL (13.5-17.5); Lymphocytes # (auto) 0.4 uL; Lymphocytes % (auto) 7.3 % (10.0-50.0); Mean Corpuscular Volume 96.9 fL (80.0-100.0); Monocytes # (auto) 0.7 uL; Monocytes % (auto) 11.6 % (0.0-12.0); Neutrophils # (auto) 4.9 uL; Neutrophils % (auto) 78.6 % (37.0-80.0); Nucleated Red Blood Cells % 0.2 %; Platelet Count (auto) 123 10^3/uL (140-450); Red Blood Cells 3.99 10^6/uL (4.5-5.90); Red Cell Distribution Width 15.5 % (11.8-14.3); White Blood Cell 6.2 10^3/uL (4.4-10.8)
[2018-06-04 11:18] LABS: Albumin 3.5 g/dL (3.4-5.0); Anion Gap 13 (5-15); Blood Urea Nitrogen 41 mg/dL (7-18); Calcium 8.3 mg/dL (8.5-10.1); Carbon Dioxide 12 mmol/L (21-32); Chloride 109 mmol/L (98-107); Glucose 309 mg/dL (74-106); Potassium 4.9 mmol/L (3.5-5.1); Sodium 134 mmol/L (136-145)
[2018-06-04 11:21] LABS: Alanine Aminotransferase 35 U/L (16-61); Alkaline Phosphatase 96 U/L (45-117); Aspartate Aminotransferase 23 U/L (15-37); BUN/Creatinine Ratio 19.1; Bilirubin, Total 0.4 mg/dL (0.2-1.0); GFR African American 41 mL/min; GFR Non-African American 34 mL/min; Total Protein 8.1 g/dL (6.4-8.2)
[2018-06-04 12:26] LABS: Urine Bacteria FEW /hpf (None Seen); Urine Blood 1+ /uL (Negative); Urine WBC 28 /hpf (0 - 3)
[2018-06-04 13:21] VITALS: BP 136/68
== END 2018-06-04 13:35 | disposition home or self-care (01) ==
LOC: ER 09:57
DX: M54.5 Low back pain (principal); M54.2 Cervicalgia; N39.0 Urinary tract infection, site not specified; E11.22 Type 2 diabetes mellitus with diabetic chronic kidney disease; I12.9 Hypertensive chronic kidney disease with stage 1 through stage 4 chronic kidney disease, or unspecified chronic kidney disease; N18.9 Chronic kidney disease, unspecified; K21.9 Gastro-esophageal reflux disease without esophagitis; Z90.49 Acquired absence of other specified parts of digestive tract; Z93.3 Colostomy status; Z87.891 Personal history of nicotine dependence; Z88.6 Allergy status to analgesic agent; Z88.8 Allergy status to other drugs, medicaments and biological substances; W19.XXXA Unspecified fall, initial encounter; Y93.89 Activity, other specified; Y92.89 Other specified places as the place of occurrence of the external cause; Y99.8 Other external cause status
CPT/HCPCS: 36415; 70450; 74176; 80053; 81001; 84484; 85025; 94761

== ENCOUNTER 2018-07-14 20:23 | Emergency (ER) | payer OTHER, MEDICAID ==
[~2018-07-14] VITALS: Ht 149.9 cm; Wt 68.9 kg
[2018-07-14] MEDS ORDERED: VANCOMYCIN 1GM/250ML 250 ML IV ONE (22:15)
[2018-07-14] MEDS ORDERED: HYDROcodone-ACET 10/325MG TAB PO ONE (22:15)
[2018-07-14 22:36] LABS: Urine Bacteria NONE SEEN /hpf (None Seen); Urine Blood TRACE /uL (Negative); Urine Specific Gravity 1.007 (1.001-1.035); Urine WBC 30 /hpf (0 - 3)
[2018-07-14 22:56] LABS: Basophils # (auto) 0 uL; Basophils % (auto) 0.5 % (0.0-2.0); Eosinophils # (auto) 0.1 uL; Eosinophils % (auto) 1.7 % (0.0-7.0); Hemoglobin 11.5 g/dL (13.5-17.5); Lymphocytes # (auto) 0.6 uL; Lymphocytes % (auto) 11.5 % (10.0-50.0); Mean Corpuscular Volume 91.2 fL (80.0-100.0); Monocytes # (auto) 0.5 uL; Monocytes % (auto) 9.5 % (0.0-12.0); Neutrophils # (auto) 4.3 uL; Neutrophils % (auto) 76.8 % (37.0-80.0); Platelet Count (auto) 135 10^3/uL (140-450); Red Blood Cells 3.72 10^6/uL (4.5-5.90); Red Cell Distribution Width 16.1 % (11.8-14.3); White Blood Cell 5.6 10^3/uL (4.4-10.8)
[2018-07-14 23:15] LABS: Albumin 3.5 g/dL (3.4-5.0); BUN/Creatinine Ratio 16.4; Magnesium 2.1 mg/dL (1.6-2.6); Potassium 4.1 mmol/L (3.5-5.1)
[2018-07-14] MEDS ORDERED: NALBUPHINE HCL 10 MG/1ml INJECTION IV ONE (23:15)
[2018-07-14 23:18] LABS: Bilirubin, Total 0.3 mg/dL (0.2-1.0); Total Protein 8.1 g/dL (6.4-8.2)
[2018-07-15 01:00] VITALS: BP 130/70
== END 2018-07-15 01:54 | disposition home or self-care (01) ==
LOC: ER 20:30
DX: L89.329 Pressure ulcer of left buttock, unspecified stage (principal); L89.319 Pressure ulcer of right buttock, unspecified stage; L89.899 Pressure ulcer of other site, unspecified stage; I12.9 Hypertensive chronic kidney disease with stage 1 through stage 4 chronic kidney disease, or unspecified chronic kidney disease; E11.22 Type 2 diabetes mellitus with diabetic chronic kidney disease; N18.9 Chronic kidney disease, unspecified; K21.9 Gastro-esophageal reflux disease without esophagitis; Z87.891 Personal history of nicotine dependence; Z90.49 Acquired absence of other specified parts of digestive tract; Z79.4 Long term (current) use of insulin; Z79.2 Long term (current) use of antibiotics; Z79.899 Other long term (current) drug therapy; Z88.8 Allergy status to other drugs, medicaments and biological substances; Z88.5 Allergy status to narcotic agent; Z88.6 Allergy status to analgesic agent; Z91.041 Radiographic dye allergy status
CPT/HCPCS: 36415; 71045; 74176; 80053; 81001; 83605; 83735; 85025; 87040; 87077; 87186; 87205; 94761; 96365; 96366; 96375; 99284; J2300; J3370

== ENCOUNTER → 2018-09-20 | Emergency (ER) | payer MEDICARE, MEDICAID ==
[~2018-09-20] VITALS: Ht 149.9 cm; Wt 78.0 kg
[~2018-09-20] MED LIST changes: +LIDOCAINE 2% (LOCAL ANESTH.) PF 5ml SDV ONE; +cefTRIAXone SOD 1,000 MG VL IM ONE
[2018-09-20 12:34] VITALS: BP 148/57
[2018-09-20 16:54] LABS: Basophils # (auto) 0 uL; Basophils % (auto) 0.6 % (0.0-2.0); Eosinophils # (auto) 0.1 uL; Eosinophils % (auto) 2.2 % (0.0-7.0); Hematocrit 34.6 % (41.0-53.0); Hemoglobin 11.4 g/dL (13.5-17.5); Lymphocytes # (auto) 0.5 uL; Lymphocytes % (auto) 9.6 % (10.0-50.0); Mean Corpuscular Hemoglobin 31.6 pg (28.0-32.0); Mean Corpuscular Hgb Conc. 32.9 g/dL (32.0-36.0); Mean Corpuscular Volume 95.9 fL (80.0-100.0); Monocytes # (auto) 0.6 uL; Monocytes % (auto) 10.9 % (0.0-12.0); Neutrophils # (auto) 4.1 uL; Neutrophils % (auto) 76.7 % (37.0-80.0); Nucleated Red Blood Cells % 0.1 %; Platelet Count (auto) 123 10^3/uL (140-450); Red Blood Cells 3.61 10^6/uL (4.5-5.90); Red Cell Distribution Width 16.2 % (11.8-14.3); White Blood Cell 5.3 10^3/uL (4.4-10.8)
[2018-09-20 17:05] LABS: Albumin 3.1 g/dL (3.4-5.0); Calcium 8.1 mg/dL (8.5-10.1); Potassium 4.1 mmol/L (3.5-5.1)
[2018-09-20 17:10] LABS: BUN/Creatinine Ratio 19.9; Bilirubin, Total 0.3 mg/dL (0.2-1.0); Total Protein 7.6 g/dL (6.4-8.2)
== END | disposition home or self-care (01) ==
LOC: ER 12:12
DX: N39.0 Urinary tract infection, site not specified (principal); K21.9 Gastro-esophageal reflux disease without esophagitis; E11.22 Type 2 diabetes mellitus with diabetic chronic kidney disease; I12.9 Hypertensive chronic kidney disease with stage 1 through stage 4 chronic kidney disease, or unspecified chronic kidney disease; N18.9 Chronic kidney disease, unspecified; Z88.6 Allergy status to analgesic agent; Z88.5 Allergy status to narcotic agent; Z88.8 Allergy status to other drugs, medicaments and biological substances; Z79.4 Long term (current) use of insulin; Z79.899 Other long term (current) drug therapy; Z90.49 Acquired absence of other specified parts of digestive tract; Z87.891 Personal history of nicotine dependence
CPT/HCPCS: 36415; 71045; 80053; 85025; 96372; 99284; J0696; J2001

== ENCOUNTER 2018-10-20 13:18 | Emergency (ER) | payer OTHER, MEDICAID ==
[~2018-10-20] VITALS: Ht 165.1 cm; Wt 63.5 kg
[~2018-10-20 13:18] MED LIST changes: -LIDOCAINE 2% (LOCAL ANESTH.) PF 5ml SDV ONE; -cefTRIAXone SOD 1,000 MG VL IM ONE
[2018-10-20 14:53] LABS: Basophils # (auto) 0 uL; Basophils % (auto) 0.4 % (0.0-2.0); Eosinophils # (auto) 0.1 uL; Eosinophils % (auto) 1.5 % (0.0-7.0); Hematocrit 40.7 % (41.0-53.0); Hemoglobin 13.5 g/dL (13.5-17.5); Lymphocytes # (auto) 0.5 uL; Lymphocytes % (auto) 9.6 % (10.0-50.0); Mean Corpuscular Hemoglobin 30.7 pg (28.0-32.0); Mean Corpuscular Hgb Conc. 33.3 g/dL (32.0-36.0); Mean Corpuscular Volume 92.3 fL (80.0-100.0); Monocytes # (auto) 0.5 uL; Monocytes % (auto) 10.4 % (0.0-12.0); Neutrophils # (auto) 3.9 uL; Neutrophils % (auto) 78.1 % (37.0-80.0); Nucleated Red Blood Cells % 0.1 %; Platelet Count (auto) 117 10^3/uL (140-450); Red Blood Cells 4.41 10^6/uL (4.5-5.90)
[2018-10-20] MEDS ORDERED: ASPirin 81 mg TAB PO ONE (15:15)
[2018-10-20 15:28] LABS: Albumin 3.5 g/dL (3.4-5.0); Anion Gap 7 (5-15); Blood Urea Nitrogen 35 mg/dL (7-18); Calcium 8.5 mg/dL (8.5-10.1); Carbon Dioxide 18 mmol/L (21-32); Chloride 111 mmol/L (98-107); Glucose 282 mg/dL (74-106); Magnesium 2.1 mg/dL (1.6-2.6); Potassium 4.5 mmol/L (3.5-5.1); Sodium 136 mmol/L (136-145)
[2018-10-20 15:34] LABS: Alanine Aminotransferase 35 U/L (16-61); Aspartate Aminotransferase 21 U/L (15-37); BUN/Creatinine Ratio 20.3; Bilirubin, Total 0.3 mg/dL (0.2-1.0); GFR African American 53 mL/min; GFR Non-African American 44 mL/min; Total Protein 7.9 g/dL (6.4-8.2)
[2018-10-20 15:45] LABS: Alkaline Phosphatase 89 U/L (45-117)
[2018-10-20 15:48] VITALS: BP 130/44
[2018-10-20 16:56] LABS: Urine Bacteria MOD /hpf (None Seen); Urine Blood 1+ /uL (Negative); Urine Budding Yeast OCCASIONAL /hpf (None Seen); Urine Specific Gravity 1.009 (1.001-1.035); Urine WBC 168 /hpf (0 - 3); Urine WBC Clumps PRESENT /hpf (None Seen)
== END 2018-10-20 17:39 | disposition home or self-care (01) ==
LOC: EDBD 13:18 → ER 13:21
DX: R07.89 Other chest pain (principal); R55 Syncope and collapse; K21.9 Gastro-esophageal reflux disease without esophagitis; E11.22 Type 2 diabetes mellitus with diabetic chronic kidney disease; I12.9 Hypertensive chronic kidney disease with stage 1 through stage 4 chronic kidney disease, or unspecified chronic kidney disease; N18.9 Chronic kidney disease, unspecified; Z90.49 Acquired absence of other specified parts of digestive tract; Z88.6 Allergy status to analgesic agent; Z88.8 Allergy status to other drugs, medicaments and biological substances; Z88.5 Allergy status to narcotic agent; Z79.4 Long term (current) use of insulin; Z79.899 Other long term (current) drug therapy; Z87.891 Personal history of nicotine dependence
CPT/HCPCS: 36415; 71046; 80053; 81001; 83735; 83880; 84484; 85025; 93005

== ENCOUNTER 2019-02-04 19:57 | Emergency (ER) | payer OTHER, MEDICAID ==
[~2019-02-04] VITALS: Ht 157.5 cm; Wt 68.9 kg
[~2019-02-04 19:57] MED LIST changes: -AMOX500C2 PO; +AMOX500T86 PO; +FLUC200T35 PO; -FOLI1TAB51 PO; +FOLI1TAB6 PO; -INSLISPI SC; +INSU100I25 SC; -LISI-646 PO; +LISI40TA PO; -SACC250C PO
[2019-02-04 21:31] LABS: Urine Bacteria MOD /hpf (None Seen); Urine Blood 2+ /uL (Negative); Urine Mucus FEW (None Seen); Urine Specific Gravity 1.014 (1.001-1.035); Urine WBC 1823 /hpf (0 - 3)
[2019-02-04] MEDS ORDERED: MEPERIDINE HCL (50 MG/ML) 1 ML VIAL IV ONE (23:15)
[2019-02-04] MEDS ORDERED: SODIUM CHLORIDE 0.9% 1,000 ML IV ONE (23:15)
[2019-02-04] MEDS ORDERED: cefTRIAXone 1GM/50ML D5W 50 ML IV ONE (23:15)
[2019-02-04] MEDS ORDERED: ONDANSETRON HCL 4 MG/2 ML VIAL IV ONE (23:15)
[2019-02-04] MEDS ORDERED: diphenhdrAMINE HCL 50 MG/1 ML VL IV ONE (23:15)
[2019-02-05 01:33] LABS: Basophils # (auto) 0 uL; Basophils % (auto) 0.5 % (0.0-2.0); Eosinophils # (auto) 0 uL; Eosinophils % (auto) 0.5 % (0.0-7.0); Hematocrit 34.6 % (41.0-53.0); Hemoglobin 11.9 g/dL (13.5-17.5); Lymphocytes # (auto) 0.3 uL; Lymphocytes % (auto) 7.6 % (10.0-50.0); Mean Corpuscular Hemoglobin 31.2 pg (28.0-32.0); Mean Corpuscular Hgb Conc. 34.4 g/dL (32.0-36.0); Mean Corpuscular Volume 90.8 fL (80.0-100.0); Monocytes # (auto) 0.7 uL; Neutrophils # (auto) 3.2 uL; Neutrophils % (auto) 75.4 % (37.0-80.0); Nucleated Red Blood Cells % 0.1 %; Red Blood Cells 3.81 10^6/uL (4.5-5.90); White Blood Cell 4.2 10^3/uL (4.4-10.8)
[2019-02-05 01:42] LABS: Anion Gap 11 (5-15); BUN/Creatinine Ratio 16.5; Blood Urea Nitrogen 31 mg/dL (7-18); Calcium 8.5 mg/dL (8.5-10.1); Carbon Dioxide 15 mmol/L (21-32); Chloride 110 mmol/L (98-107); GFR African American 48 mL/min; GFR Non-African American 39 mL/min; Glucose 252 mg/dL (74-106); Potassium 4.6 mmol/L (3.5-5.1); Sodium 136 mmol/L (136-145)
[2019-02-05 01:45] LABS: Alanine Aminotransferase 28 U/L (16-61); Alkaline Phosphatase 79 U/L (45-117); Aspartate Aminotransferase 49 U/L (15-37); Bilirubin, Total 0.7 mg/dL (0.2-1.0); Total Protein 7.9 g/dL (6.4-8.2)
[2019-02-05 02:00] VITALS: BP 157/80
[2019-02-05] MEDS ORDERED: ONDANSETRON HCL 4 MG/2 ML VIAL IV ONE (02:00)
[2019-02-05] MEDS ORDERED: MORPHINE SULF INJ 2 MG/ML SYRINGE 1ML IV ONE (02:00)
[2019-02-05] MEDS ORDERED: MEPERIDINE HCL (25 MG/ML) 1ML VIAL IV ONE (02:00)
[2019-02-05 02:03] LABS: Platelet Count (auto) 99 10^3/uL (140-450)
== END 2019-02-05 02:35 | disposition home or self-care (01) ==
LOC: ER 20:03
DX: N39.0 Urinary tract infection, site not specified (principal); K21.9 Gastro-esophageal reflux disease without esophagitis; I12.9 Hypertensive chronic kidney disease with stage 1 through stage 4 chronic kidney disease, or unspecified chronic kidney disease; E11.22 Type 2 diabetes mellitus with diabetic chronic kidney disease; N18.9 Chronic kidney disease, unspecified; Z87.442 Personal history of urinary calculi; Z90.49 Acquired absence of other specified parts of digestive tract; Z88.6 Allergy status to analgesic agent; Z88.5 Allergy status to narcotic agent; Z79.4 Long term (current) use of insulin; Z79.899 Other long term (current) drug therapy; Z87.891 Personal history of nicotine dependence
CPT/HCPCS: 36415; 80053; 81001; 82962; 83605; 83880; 85025; 87040; 87086; 87088; 87186; 96365; 96375; 96376; 99283; J0696; J1200; J2175; J2405

== ENCOUNTER 2019-10-18 15:51 | Emergency (ER) | payer OTHER, MEDICAID ==
[~2019-10-18] VITALS: Ht 149.9 cm; Wt 68.9 kg
[2019-10-18 18:47] LABS: Urine Bacteria FEW /hpf (None Seen); Urine Blood 1+ /uL (Negative); Urine Specific Gravity 1.013 (1.001-1.035); Urine WBC 1440 /hpf (0 - 3); Urine WBC Clumps PRESENT /hpf (None Seen)
[2019-10-18] MEDS ORDERED: SODIUM CHLORIDE 0.9% 500 ML IV ONE (18:54)
[2019-10-18] MEDS ORDERED: NALBUPHINE HCL 10 MG/1ml INJECTION IV ONE (19:00)
[2019-10-18 19:30] VITALS: BP 127/63
== END 2019-10-18 20:30 | disposition home or self-care (01) ==
LOC: ER 15:51
DX: Q05.9 Spina bifida, unspecified (principal); N39.0 Urinary tract infection, site not specified; R33.9 Retention of urine, unspecified; E11.22 Type 2 diabetes mellitus with diabetic chronic kidney disease; I12.9 Hypertensive chronic kidney disease with stage 1 through stage 4 chronic kidney disease, or unspecified chronic kidney disease; N18.9 Chronic kidney disease, unspecified; K21.9 Gastro-esophageal reflux disease without esophagitis; Z79.4 Long term (current) use of insulin; Z90.49 Acquired absence of other specified parts of digestive tract; Z87.442 Personal history of urinary calculi; Z88.6 Allergy status to analgesic agent; Z88.8 Allergy status to other drugs, medicaments and biological substances; Z79.899 Other long term (current) drug therapy; Z87.891 Personal history of nicotine dependence
CPT/HCPCS: 81001; 99283; J7030

== ENCOUNTER 2020-07-15 17:06 | Inpatient (IN) | payer OTHER, MEDICAID ==
[~2020-07-15] VITALS: Ht 149.9 cm; Wt 62.6 kg
[~2020-07-15 17:06] MED LIST changes: -LISI40TA PO; +LISI40TA11 PO
[2020-07-15 19:10] LABS: Urine Amorphous Crystal FEW /hpf (None Seen); Urine Bacteria NONE SEEN /hpf (None Seen); Urine Blood 1+ /uL (Negative); Urine Specific Gravity 1.009 (1.001-1.035); Urine WBC 347 /hpf (0 - 3); Urine WBC Clumps PRESENT /hpf (None Seen)
[2020-07-15] MEDS ORDERED: MORPHINE SULF INJ 2 MG/ML SYRINGE 1ML IV PRN (21:45)
[2020-07-15] MEDS ORDERED: NITROGLYCERIN 0.4 MG SL TAB SL PRN (21:45)
[2020-07-15] MEDS ORDERED: SODIUM BICARB 50ML SYR 100 ML in SOD CHL 0.45% 1,000 ML IV ONE (22:00)
[2020-07-15] MEDS ORDERED: ONDANSETRON HCL 4 MG/2 ML VIAL IV PRN ×2 (23:15)
[2020-07-16 00:14] LABS: Alanine Aminotransferase 26 U/L (16-61); Albumin 3.6 g/dL (3.4-5.0); Anion Gap 11 (5-15); Aspartate Aminotransferase 31 U/L (15-37); BUN/Creatinine Ratio 19.2; Blood Urea Nitrogen 35 mg/dL (7-18); Calcium 8.8 mg/dL (8.5-10.1); Carbon Dioxide 15 mmol/L (21-32); Chloride 108 mmol/L (98-107); GFR African American 49 mL/min; GFR Non-African American 41 mL/min; Glucose 147 mg/dL (74-106); Sodium 134 mmol/L (136-145)
[2020-07-16 00:17] LABS: Alkaline Phosphatase 126 U/L (45-117); Bilirubin, Total 0.6 mg/dL (0.2-1.0); Total Protein 9.2 g/dL (6.4-8.2)
[2020-07-16] MEDS ORDERED: ONDANSETRON HCL 4 MG/2 ML VIAL IM ONE (06:15)
[2020-07-16] MEDS ORDERED: HYDROmorphone HCL 2 MG/ML VL IM ONE (06:15)
--- NOTE | 2020-07-16 08:30 | NUR ---
Midline Placement: Patient educated on need for midline placement. All risks and benefits explained and all questions and concerns addresses prior to procedure. 18g/ 10cm midline inserted via left brachial vein using Ultrasound. Sterile technique utilized. Blood return obtained from the single lumen and flushed easily with NS using proper technique. Midline secured with saline lock; biodisc and occlusive dressing applied. Primary RN notified. Midline lot # [id number]
[2020-07-16] MEDS ORDERED: PHENYTOIN SODIUM 100 MG CAP PO ONE ×2 (10:00)
[2020-07-16] MEDS ORDERED: FOLIC ACID 1 MG TAB PO ONE ×2 (10:00)
[2020-07-16] MEDS ORDERED: SODIUM BICARBONATE 50ML VIAL 50 ML in SOD CHL 0.45% 1,000 ML IV ONE (10:15)
--- NOTE | 2020-07-16 11:47 | NUR ---
Placed a call to [facility] [phone], no answer, left a message for Brittni GRAHAM to call me back regarding patients' transfer.
[2020-07-16] MEDS: HYDROmorphone HCL 2 MG/ML VL IV PRN ×2 (12:10→20:41)
--- NOTE | 2020-07-16 12:20 | NUR ---
Called Brittni GRAHAM again at [facility] and informed her of the patient needing to be transferred to [facility], explain that the patient had the shunt placed there, stated that I had faxed the clinicals to her, stated she would read them and call me back, gave call back information.
[2020-07-16] MEDS: PIPERACILLIN-TAZOB 2.25GM 50 ML IV SCH ×3 (13:27→17:35)
[2020-07-16] MEDS: PANTOPRAZOLE 40 MG/10 ML VIAL INJ IV SCH (13:29)
[2020-07-16] MEDS: INSULIN LISPRO (HUMAN) 100 UNITS/ML ML SC SCH ×3 (13:29→18:34)
--- NOTE | 2020-07-16 13:45 | NUR ---
Received a call from Brittni [facility] states she had spoke with her [employer] and they wanted me to call other hospitals to see if they would take the patient, and then call her back, Stated we had called [facility] and they said they were at capacity, Stated we had called [facility] and they were at capacity. Called the ER to make Sania aware, stated I was going to call other hospitals and let them know if any one else will accept the patient.
--- NOTE | 2020-07-16 15:04 | NUR ---
Called [facility] [phone] spoke with the [facility] stated they have no beds, Called [facility] spoke with Rena Smith stated they have no beds Called [facility] [phone] three times no answer Called [facility] [phone] spoke with Qian Graham stated they have no beds Called [facility] [phone] spoke with Rox stated they have no beds Called [facility] [phone] spoke with Pallavi academic affairs coordinator stated they are at capacity Called [facility] [phone], left a message no return call Called [facility] [phone] spoke with Shannan in the Er, spoke to the ER MD who wanted to speak to the Md int he ER that was taking care of the patient, transferred the call to the Er for MD to MD report. Called Brittni GRAHAM for [facility] [phone] and left a message explaining the hospitals that I had called and their answer, also called the ER [phone] and made them aware.
--- NOTE | 2020-07-16 15:55 | NUR ---
No return call from Brittni at [facility], left second message regarding the bed situation.
--- NOTE | 2020-07-16 16:04 | NUR ---
Received a call from Brittni Vazquez at [facility] gave authorization for [facility] [id number] an for transportation [id number], Called ER [phone] spoke with and made aware.
[2020-07-16] MEDS ORDERED: INSULIN LISPRO (HUMAN) 100 UNITS/ML ML SC SCH (22:00)
[2020-07-17] MEDS: PIPERACILLIN-TAZOB 2.25GM 50 ML IV SCH ×2 (00:23→08:00)
[2020-07-17 03:26] LABS: Albumin 2.9 g/dL (3.4-5.0); Anion Gap 10 (5-15); Blood Urea Nitrogen 59 mg/dL (7-18); Carbon Dioxide 17 mmol/L (21-32); Chloride 105 mmol/L (98-107); Glucose 181 mg/dL (74-106); Potassium 3.8 mmol/L (3.5-5.1); Sodium 132 mmol/L (136-145)
[2020-07-17 03:28] LABS: Basophils # (auto) 0 10 ^3/uL (0-0.2); Basophils % (auto) 0.4 % (0.0-2.0); Eosinophils # (auto) 0.1 10 ^3/uL (0-0.8); Eosinophils % (auto) 1.6 % (0.0-7.0); Hematocrit 33.2 % (41.0-53.0); Hemoglobin 11.4 g/dL (13.5-17.5); Lymphocytes # (auto) 0.7 10 ^3/uL (0.4-5.4); Lymphocytes % (auto) 10.2 % (10.0-50.0); Mean Corpuscular Hemoglobin 31.5 pg (28.0-32.0); Mean Corpuscular Hgb Conc. 34.3 g/dL (32.0-36.0); Mean Corpuscular Volume 91.7 fL (80.0-100.0); Monocytes # (auto) 1.2 10 ^3/uL (0-1.3); Monocytes % (auto) 17.1 % (0.0-12.0); Neutrophils # (auto) 4.9 10 ^3/uL (1.6-8.6); Neutrophils % (auto) 70.7 % (37.0-80.0); Nucleated Red Blood Cells % 0.1 %; Platelet Count (auto) 116 10^3/uL (140-450); Red Blood Cells 3.62 10^6/uL (4.5-5.90); Red Cell Distribution Width 15.5 % (11.8-14.3); White Blood Cell 6.9 10^3/uL (4.4-10.8)
[2020-07-17 03:34] LABS: Alanine Aminotransferase 25 U/L (16-61); Alkaline Phosphatase 104 U/L (45-117); Aspartate Aminotransferase 25 U/L (15-37); Bilirubin, Total 0.4 mg/dL (0.2-1.0); GFR African American 35 mL/min; GFR Non-African American 29 mL/min; Total Protein 7.6 g/dL (6.4-8.2)
[2020-07-17] MEDS: HYDROmorphone HCL 2 MG/ML VL IV PRN (04:00)
[2020-07-17] MEDS: INSULIN LISPRO (HUMAN) 100 UNITS/ML ML SC SCH ×2 (07:00→11:30)
[2020-07-17] MEDS: PANTOPRAZOLE 40 MG/10 ML VIAL INJ IV SCH (10:00)
[2020-07-17] MEDS ORDERED: SODIUM BICARBONATE 50ML VIAL 50 ML in SOD CHL 0.45% 1,000 ML IV SCH (13:15)
[2020-07-17 15:25] VITALS: BP 115/59
[2020-07-17] MEDS ORDERED: INSULIN LANTUS (GLARGINE) 1 /0.01ml (100units/ml) SC SCH (17:00)
[2020-07-17] MEDS ORDERED: PHENYTOIN SODIUM 100 MG CAP PO SCH (22:00)
[2020-07-17] MEDS ORDERED: AMOXICILLIN/CLAVULAN 500 MG TAB PO SCH (22:00)
[2020-07-18] MEDS ORDERED: PANTOPRAZOLE 40 MG/10 ML VIAL INJ IV SCH (10:00)
== END 2020-07-17 18:00 | disposition short-term general hospital (02) | DRG 690 ==
LOC: ER 17:06 → TELE 17:07
PROVIDERS: ADMIT Specialist; ATTEND Specialist
DX: N13.6 Pyonephrosis (principal); T85.01XA Breakdown (mechanical) of ventricular intracranial (communicating) shunt, initial encounter; I13.0 Hypertensive heart and chronic kidney disease with heart failure and stage 1 through stage 4 chronic kidney disease, or unspecified chronic kidney disease; N17.0 Acute kidney failure with tubular necrosis; Z93.3 Colostomy status; E11.22 Type 2 diabetes mellitus with diabetic chronic kidney disease; E66.9 Obesity, unspecified; F32.9 Major depressive disorder, single episode, unspecified; G40.909 Epilepsy, unspecified, not intractable, without status epilepticus; I50.9 Heart failure, unspecified; E86.1 Hypovolemia; Z20.828 Contact with and (suspected) exposure to other viral communicable diseases; Y75.2 Prosthetic and other implants, materials and neurological devices associated with adverse incidents; J44.9 Chronic obstructive pulmonary disease, unspecified; K21.9 Gastro-esophageal reflux disease without esophagitis; N18.9 Chronic kidney disease, unspecified; Z87.440 Personal history of urinary (tract) infections; Z85.038 Personal history of other malignant neoplasm of large intestine; Z87.442 Personal history of urinary calculi; Z87.891 Personal history of nicotine dependence; Z90.49 Acquired absence of other specified parts of digestive tract; Z82.49 Family history of ischemic heart disease and other diseases of the circulatory system; Z90.5 Acquired absence of kidney; Z88.6 Allergy status to analgesic agent; Z88.5 Allergy status to narcotic agent; Z88.8 Allergy status to other drugs, medicaments and biological substances; F41.9 Anxiety disorder, unspecified; G89.29 Other chronic pain; Z80.9 Family history of malignant neoplasm, unspecified; D50.9 Iron deficiency anemia, unspecified
CPT/HCPCS: 36415; 70450; 74176; 80053; 81001; 83036; 83605; 83880; 84484; 85025; 87040; 87086; 87088; 87186; 87426; C9113; G0378; J1815; J2405; J2543

== ENCOUNTER 2020-12-23 07:24 | Emergency (ER) | payer OTHER, MEDICAID ==
[~2020-12-23] VITALS: Ht 149.9 cm; Wt 63.5 kg
[2020-12-23] MEDS ORDERED: SODIUM CHLORIDE 0.9% 1,000 ML IV ONE ×2 (08:15→18:00)
[2020-12-23 08:45] LABS: Basophils # (auto) 0 10 ^3/uL (0-0.2); Basophils % (auto) 0.1 % (0.0-2.0); Eosinophils # (auto) 0 10 ^3/uL (0-0.8); Eosinophils % (auto) 0.1 % (0.0-7.0); Hematocrit 36.9 % (41.0-53.0); Hemoglobin 12.6 g/dL (13.5-17.5); Lymphocytes # (auto) 0.3 10 ^3/uL (0.4-5.4); Lymphocytes % (auto) 2.1 % (10.0-50.0); Mean Corpuscular Hemoglobin 30.9 pg (28.0-32.0); Mean Corpuscular Hgb Conc. 34.1 g/dL (32.0-36.0); Mean Corpuscular Volume 90.6 fL (80.0-100.0); Monocytes # (auto) 0.7 10 ^3/uL (0-1.3); Monocytes % (auto) 4.5 % (0.0-12.0); Neutrophils # (auto) 14.6 10 ^3/uL (1.6-8.6); Neutrophils % (auto) 93.2 % (37.0-80.0); Platelet Count (auto) 148 10^3/uL (140-450); Red Blood Cells 4.07 10^6/uL (4.5-5.90); Red Cell Distribution Width 14.7 % (11.8-14.3); White Blood Cell 15.6 10^3/uL (4.4-10.8)
[2020-12-23] MEDS ORDERED: ONDANSETRON HCL 4 MG/2 ML VIAL IV ONE (08:45)
[2020-12-23 08:59] LABS: Albumin 3.5 g/dL (3.4-5.0); Anion Gap 10 (5-15); Blood Urea Nitrogen 40 mg/dL (7-18); Calcium 8.3 mg/dL (8.5-10.1); Carbon Dioxide 13 mmol/L (21-32); Chloride 112 mmol/L (98-107); Glucose 260 mg/dL (74-106); Potassium 4.5 mmol/L (3.5-5.1); Sodium 135 mmol/L (136-145)
[2020-12-23] MEDS ORDERED: MEPERIDINE HCL (50 MG/ML) 1 ML VIAL IV ONE ×2 (09:00→11:15)
[2020-12-23] MEDS ORDERED: PROMETHAZINE HCL 25 MG/ML 1ML IM ONE (09:00)
[2020-12-23 09:05] LABS: Alanine Aminotransferase 22 U/L (16-61); Alkaline Phosphatase 75 U/L (45-117); Aspartate Aminotransferase 15 U/L (15-37); BUN/Creatinine Ratio 22.1; Bilirubin, Total 0.6 mg/dL (0.2-1.0); GFR African American 49 mL/min; GFR Non-African American 41 mL/min; Total Protein 8.3 g/dL (6.4-8.2)
[2020-12-23 09:16] LABS: INR 1.05 (0.9-1.15); Partial Thromboplastin Time 28.2 sec (23.0-31.2)
[2020-12-23] MEDS ORDERED: PROCHLORPERAZINE EDISYLATE 5 MG/ML 2ML VIAL IV ONE (10:45)
[2020-12-23 11:51] LABS: Urine Bacteria MOD /hpf (None Seen); Urine Blood 1+ /uL (Negative); Urine Mucus FEW (None Seen); Urine Specific Gravity 1.012 (1.001-1.035); Urine WBC 354 /hpf (0 - 3); Urine WBC Clumps PRESENT /hpf (None Seen)
[2020-12-23 12:20] LABS: Amphetamine Screen, Urine NEGATIVE (NEGATIVE); Barbiturate Scree,Urine NEGATIVE (NEGATIVE); Benzodiazephine Screen, Urine NEGATIVE (NEGATIVE); Cannabinoid Screen, Urine NEGATIVE (NEGATIVE); Cocaine Screen, Urine NEGATIVE (NEGATIVE); Opiate Scree,Urine NEGATIVE (NEGATIVE); Phencyclidine Screen, Urine NEGATIVE (NEGATIVE)
[2020-12-23] MEDS ORDERED: cefTRIAXone 1GM/50ML D5W 50 ML IV ONE (12:45)
[2020-12-23] MEDS ORDERED: HYDROmorphone HCL 2 MG/ML VL IV ONE ×2 (17:15→21:15)
[2020-12-23 20:15] VITALS: BP 174/84
== END 2020-12-23 21:21 | disposition short-term general hospital (02) ==
LOC: EDBD 07:24 → ER 07:24
DX: R51.9 Headache, unspecified (principal); N39.0 Urinary tract infection, site not specified; G40.909 Epilepsy, unspecified, not intractable, without status epilepticus; Q05.2 Lumbar spina bifida with hydrocephalus; J01.00 Acute maxillary sinusitis, unspecified; T85.09XA Other mechanical complication of ventricular intracranial (communicating) shunt, initial encounter; E11.40 Type 2 diabetes mellitus with diabetic neuropathy, unspecified; E11.22 Type 2 diabetes mellitus with diabetic chronic kidney disease; I12.9 Hypertensive chronic kidney disease with stage 1 through stage 4 chronic kidney disease, or unspecified chronic kidney disease; N18.9 Chronic kidney disease, unspecified; K21.9 Gastro-esophageal reflux disease without esophagitis; Z86.2 Personal history of diseases of the blood and blood-forming organs and certain disorders involving the immune mechanism; Z87.891 Personal history of nicotine dependence; Z90.49 Acquired absence of other specified parts of digestive tract; Z79.2 Long term (current) use of antibiotics; Z79.4 Long term (current) use of insulin; Z79.899 Other long term (current) drug therapy; Z88.6 Allergy status to analgesic agent; Z88.5 Allergy status to narcotic agent; Z88.8 Allergy status to other drugs, medicaments and biological substances
CPT/HCPCS: 36415; 70450; 71045; 80053; 80185; 80307; 81001; 82140; 83735; 84443; 84484; 85025; 85610; 85730; 93005; 96361; 96365; 96366; 96372; 96375; 96376; 99285; J0696; J0780; J1170; J2175; J2405; J2550; J7030